=== PATIENT | female | born 1955 | race Caucasian/White ===

== ENCOUNTER 2021-09-18 06:09 | Day surgery (SDC) | payer MEDICARE, SELFPAY ==
[2021-09-08 08:46] VITALS: BMI 29.0
--- NOTE | 2021-09-14 12:22 | MHC.SHP ---
Pre-Procedural Eval Section A Date of Service: 09/14/21 The patient is an INPATIENT: No Changes since office visit: No Cold of Flu in the past 2 weeks, No New Medical Problems, No Changes in Medication and No Patient answered all questions The History & Physical has been completed within 30 days and I have reviewed it.: Yes Section B Chief Complaint: Cataract Left Eye Allergies: Allergies Allergy/AdvReac Type Severity Reaction Status Date / Time No Known Allergies Allergy Verified 09/07/21 13:52 Plan Diagnosis/Plan: Unchanged I have reviewed the history and physical and performed a pertinent physical examination on my patient. No changes have occurred unless specified.
--- NOTE | 2021-09-14 13:32 | P.CONAN_ITS ---
Documented by User: Brisa Ramirez NP 09/14/21 13:33 HPI - Anesthesia Eval Consult details Narrative: 65yo F for Left Cataract Extraction IOL Insertion PCP cleared No previous cataract on record Pt requests Zofran per pcp clearance PMFSH Past Medical History Medical History Cervical dystonia Essential tremor Mitral valve prolapse Peripheral neuropathy PONV (postoperative nausea and vomiting) Surgical History Surgical History History of medial meniscus repair of left knee Hx of colonoscopy Social History Social History Are you a primary plant health care technician to a significant other at home: No Do you presently have visiting nurse or other home services: No Patient Tobacco Use Status: Former Tobacco user Quit Date: Age 17 Use of substances other than those prescribed or required for medical reasons: No Have you been hit, kicked, punched, or otherwise hurt by someone within the past year? If so, by whom?: No Are you DNR?: No Advance Directives: No Advance Directives Information Provided: Yes Advance Directives on File: No Recently lost weight without trying: No Eating poorly because of decreased appetite: No Nutrition Risks: No Nutritional Risk Patient : No Meds Allergies Allergy/AdvReac Type Severity Reaction Status Date / Time No Known Allergies Allergy Verified 09/18/21 06:23 Home Medications Medication Instructions Recorded Confirmed Last Taken Type duloxetine 20 mg capsule,delayed 1 cap PO DAILY 09/07/21 09/07/21 Unknown History release duloxetine 30 mg capsule,delayed 1 cap PO DAILY 09/07/21 09/07/21 Unknown History release ondansetron HCl 4 mg tablet 1 tab PO Q6H PRN 09/07/21 09/07/21 Unknown History acetaminophen 500 mg tablet 1,000 mg PO Q6H PRN 09/08/21 09/08/21 Unknown History psyllium husk 3.4 gram/5.4 gram 1 tbsp PO DAILY 09/08/21 09/08/21 Unknown History oral powder (Metamucil) Exam Exam Date and Time: September 14, 2021 1332 Height,Weight and Vital Signs: Height 5 ft 5.5 in Weight 80.286 kg Assessment and Plan Assessment Anesthesia Assessment: Chart Reviewed Documented by User: Odette Lozano MD 09/18/21 07:04 [facility] Past Medical History Medical History Cervical dystonia Essential tremor Mitral valve prolapse Peripheral neuropathy PONV (postoperative nausea and vomiting) Family History Family history of problems with anesthesia: No Surgical History Surgical History History of medial meniscus repair of left knee Hx of colonoscopy History of Problems with Anesthesia: No Social History Social History Are you a primary plant health care technician to a significant other at home: No Do you presently have visiting nurse or other home services: No Patient Tobacco Use Status: Former Tobacco user Quit Date: Age 17 Use of substances other than those prescribed or required for medical reasons: No Have you been hit, kicked, punched, or otherwise hurt by someone within the past year? If so, by whom?: No Are you DNR?: No Advance Directives: No Advance Directives Information Provided: Yes Advance Directives on File: No Recently lost weight without trying: No Eating poorly because of decreased appetite: No Nutrition Risks: No Nutritional Risk Patient : No Meds Allergies Allergy/AdvReac Type Severity Reaction Status Date / Time No Known Allergies Allergy Verified 09/18/21 06:23 Home Medications Medication Instructions Recorded Confirmed Last Taken Type duloxetine 20 mg capsule,delayed 1 cap PO DAILY 09/07/21 09/07/21 Unknown History release duloxetine 30 mg capsule,delayed 1 cap PO DAILY 09/07/21 09/07/21 Unknown History release ondansetron HCl 4 mg tablet 1 tab PO Q6H PRN 09/07/21 09/07/21 Unknown History acetaminophen 500 mg tablet 1,000 mg PO Q6H PRN 09/08/21 09/08/21 Unknown History psyllium husk 3.4 gram/5.4 gram 1 tbsp PO DAILY 09/08/21 09/08/21 Unknown History oral powder (Metamucil) Exam Airway Mallampati Class: II (Multiple Caps ) TM Dist: >3cm Neck ROM: Full Heart: rrr Lungs: cta Assessment and Plan Assessment Anesthesia Assessment: Anesthesia Plan Discussed and Chart Reviewed Final Anesthetic Review Family History of Problems with Anesthesia: No History of Problems with Anesthesia: No NPO: Yes ASA Class: II Final Preanesthetic Review: No Changes in Pt Med Stat, Meds/Allgs Chart Reviewed and Consent Obtained/Reviewed Patient Risk: Intermediate Procedure Risk: Intermediate Anesthetic Plan Anesthetic Plan: MAC: Disposition: Standard PACU
[2021-09-18 06:23] VITALS: BP 147/81; PULSE 78; RESP 16; TEMP 36.8; O2SAT 98
[2021-09-18] MEDS: Tetracaine HCl/PF 0.5% Oph Sol 4 ML DROPS 1 DROP EYE-LEFT (06:38)
[2021-09-18] MEDS: Lactated Ringers 500 ML 50 ML IV (06:38)
[2021-09-18] MEDS: Tropicamide 1 % Ophth Sol 3 ML BTL 1 DROP EYE-LEFT ×3 (06:43→06:51)
[2021-09-18] MEDS: Phenylephrine HCL 2.5% Oph SoL 2 ML BOTTLE 1 DROP EYE-LEFT ×3 (06:45→06:54)
--- NOTE | 2021-09-18 07:29 | HO.PNOPHT ---
Ophthalmology Procedure Procedure Date of Service: 09/18/21 Ophthalmology Viscoelastic: Healvance Duet Dual Pack Pro Ophthalmology Lenses: TECCAROL [id number] (20) Procedure Notes: PREOPERATIVE DIAGNOSIS: Decreased visual acuity left eye secondary to cataract POSTOPERATIVE DIAGNOSIS: Same PROCEDURE: Left cataract extraction with intraocular lens insertion SURGEON: Mik Gallego M.D. ANESTHESIA: Topical/MAC ESTIMATED BLOOD LOSS: None COMPLICATIONS: None After obtaining informed consent, the patient was brought to the operation room suite and placed in the supine position. After adequate sedation per anesthesia, topical drops of Tetracaine were given to the left eye. The eye was then prepped and draped in the usual sterile fashion. The operating room microscope was then positioned over the operative eye and a lid speculum placed. A paracentesis was created. Viscoelastic was then instilled into the anterior chamber. A three plane incision was then created temporally, utilizing a 2.85 mm keratome. Capsulotomy forceps were then utilized to create a circular tear capsulotomy. Hydrodissection and hydrodelineation were carried out until adequate mobilization of the nucleus occurred. Phacoemulsification was then utilized to remove the dense central nucleus followed by removal of the cortical material utilizing the automated aspiration irrigation unit. Viscoat elastic was instilled into the posterior capsular bag followed by placement of a posterior chamber intraocular lens without difficulty. The residual Viscoat elastic was then removed utilizing the automated IA machine. The wound was check and found to be watertight. The patient tolerated the procedure well and the lid speculum was removed. Intracameral injection of Vigamox 0.1 mL followed by a subtenon injection of Kenalog-40 0.2 mL were administered. The patient will be seen in the a.m.
[2021-09-18 07:57] VITALS: BP 150/77; PULSE 75; RESP 16; TEMP 36.6; O2SAT 98
== END 2021-09-18 08:12 ==
LOC: HO.SSS 06:09
PROVIDERS: PCP Internal Medicine; Visit Provider Ophthalmology
PROC: (CPT 66985; principal; 2021-09-18 07:30)
DX: H25.12 Age-related nuclear cataract, left eye (principal); H52.4 Presbyopia; G25.0 Essential tremor; Z79.899 Other long term (current) drug therapy; Z87.891 Personal history of nicotine dependence
CPT/HCPCS: 66984; J2250; J3010; J3300; V2632

== ENCOUNTER 2022-10-29 06:11 | Day surgery (SDC) | payer MEDICARE, SELFPAY ==
[2022-10-23 16:36] VITALS: BMI 29.0
--- NOTE | 2022-10-26 09:23 | MHC.SHP ---
Pre-Procedural Eval Section A Date of Service: 10/26/22 The patient is an INPATIENT: No Changes since office visit: No Cold of Flu in the past 2 weeks, No New Medical Problems, No Changes in Medication and No Patient answered all questions The History & Physical has been completed within 30 days and I have reviewed it.: Yes Section B Chief Complaint: Age-related nuclear cataract, right eye Allergies: Allergies Allergy/AdvReac Type Severity Reaction Status Date / Time No Known Allergies Allergy Verified 10/23/22 16:26 Plan Diagnosis/Plan: Unchanged I have reviewed the history and physical and performed a pertinent physical examination on my patient. No changes have occurred unless specified. Time Spent With Patient Time: Total time managing care of this patient today ____ minutes.
--- NOTE | 2022-10-28 10:54 | HO.ANESPROP2 ---
[facility] Past Medical History Medical History Cervical dystonia Essential tremor Mitral valve prolapse Peripheral neuropathy PONV (postoperative nausea and vomiting) Family History Family history of problems with anesthesia: No Surgical History Surgical History History of left cataract extraction History of medial meniscus repair of left knee Hx of colonoscopy History of Problems with Anesthesia: No Social History Social History Are you a primary primary care nurse practitioner to a significant other at home: No Do you presently have visiting nurse or other home services: No Patient Tobacco Use Status: Former Tobacco user Quit Date: Age 17 Use of substances other than those prescribed or required for medical reasons: No Have you been hit, kicked, punched, or otherwise hurt by someone within the past year? If so, by whom?: No Are you DNR?: No Advance Directives: No Advance Directives Information Provided: No Advance Directives on File: No Recently lost weight without trying: No Eating poorly because of decreased appetite: No Nutrition Risks: No Nutritional Risk Meds Allergies Allergy/AdvReac Type Severity Reaction Status Date / Time No Known Allergies Allergy Verified 10/23/22 16:26 Active Medications: Current Medications Lactated Ringer's (Lr) 500 mls @ 50 mls/hr IVCONT .Q10H [facility] Home Medications Medication Instructions Recorded Confirmed Last Taken Type ondansetron HCl 4 mg tablet 1 tab PO Q6H PRN nausea/vomiting 09/07/21 10/09/22 Unknown History acetaminophen 500 mg tablet 1,000 mg PO Q6H PRN Pain 09/08/21 10/09/22 Unknown History psyllium husk 3.4 gram/5.4 gram 1 tbsp PO DAILY 09/08/21 10/09/22 Unknown History oral powder (Metamucil) duloxetine 40 mg capsule,delayed 40 mg PO DAILY 10/23/22 10/23/22 Unknown History release Exam Exam Date and Time: October 28, 2022 1054 Height,Weight and Vital Signs: Height 5 ft 5.5 in Weight 80.28 kg Airway Mallampati Class: II TM Dist: >3cm Neck ROM: Limited Heart: RRR Lungs: CTA Assessment and Plan Assessment Anesthesia Assessment: Anesthesia Plan Discussed and Chart Reviewed Final Anesthetic Review Family History of Problems with Anesthesia: No History of Problems with Anesthesia: No NPO: Yes ASA Class: II Final Preanesthetic Review: No Changes in Pt Med Stat, Meds/Allgs Chart Reviewed, Consent Obtained/Reviewed and Anes Risks/Benef Reviewed Patient Risk: Intermediate Procedure Risk: Low Anesthetic Plan Anesthetic Plan: MAC: Disposition: Standard PACU
[2022-10-29] MEDS: Tetracaine HCl/PF 0.5% Oph Sol 4 ML DROPS 1 DROP EYE-RIGHT (06:30)
[2022-10-29] MEDS: Ketorolac Tromethamine 0.5% Op 5 ML DROPS 1 DROP EYE-RIGHT ×3 (06:30→06:41)
[2022-10-29] MEDS: Phenylephrine HCL 2.5% Oph SoL 2 ML BOTTLE 1 DROP EYE-RIGHT ×3 (06:30→06:42)
[2022-10-29] MEDS: Cyclopentolate 1 % Ophth Sol 2 ML DRPBTL 1 DROP EYE-RIGHT ×3 (06:30→06:41)
[2022-10-29] MEDS: Tropicamide 1 % Ophth Sol 3 ML BTL 1 DROP EYE-RIGHT ×3 (06:30→06:41)
[2022-10-29] MEDS: Lactated Ringers 500 ML 50 ML IVCONT (06:37)
[2022-10-29 06:38] VITALS: BP 157/78; PULSE 88; RESP 18; TEMP 36.7; O2SAT 98
--- NOTE | 2022-10-29 07:45 | HO.PNOPHT ---
Ophthalmology Procedure Procedure Date of Service: 10/29/22 Ophthalmology Viscoelastic: Dong Onealt Dual Pack Pro Ophthalmology Lenses: TECCAROL [id number] (20) Procedure Notes: PREOPERATIVE DIAGNOSIS: Decreased visual acuity right eye secondary to cataract POSTOPERATIVE DIAGNOSIS: Same PROCEDURE: Right cataract extraction with intraocular lens insertion SURGEON: Mik Gallego M.D. ANESTHESIA: Topical/MAC ESTIMATED BLOOD LOSS: None COMPLICATIONS: None After obtaining informed consent, the patient was brought to the operating room suite and placed in the supine position. After adequate sedation per anesthesia, topical drops of Tetracaine were given to the right eye. The eye was then prepped and draped in the usual sterile fashion. The operating room microscope was then positioned over the operative eye and a lid speculum placed. A paracentesis was created. Viscoelastic was then instilled into the anterior chamber. A three plane incision was then created temporally, utilizing a 2.85 mm keratome. Capsulotomy forceps were then utilized to create a circular tear capsulotomy. Hydrodissection and hydrodelineation were carried out until adequate mobilization of the nucleus occurred. Phacoemulsification was then utilized to remove the dense central nucleus followed by removal of the cortical material utilizing the automated aspiration irrigation unit. Viscoelastic was instilled into the posterior capsular bag followed by placement of a posterior chamber intraocular lens without difficulty. The residual Viscoelastic was then removed utilizing the automated IA machine. The wound was checked and found to be watertight. The patient tolerated the procedure well and the lid speculum was removed. Intracameral injection of Vigamox 0.1 mL followed by a subtenon injection of Kenalog-40 0.2 mL were administered. The patient will be seen in the a.m.
[2022-10-29 08:11] VITALS: BP 168/73; PULSE 71; RESP 18; TEMP 36.3; O2SAT 99
== END 2022-10-29 08:20 | disposition home or self-care (01) ==
PROVIDERS: PCP Internal Medicine; Visit Provider Ophthalmology
PROC: (CPT 66985; principal; 2022-10-29 07:50)
DX: H25.11 Age-related nuclear cataract, right eye (principal)
CPT/HCPCS: 66984; J2250; J2405; J3010; J3301; V2632